=== PATIENT | female | born 1960 | race Caucasian/White ===

== ENCOUNTER → 2016-06-02 | Outpatient (CLI) | payer OTHER ==
--- NOTE | 2016-06-02 17:57 | MR ---
EXAMINATION TYPE: MR lumbar spine wo con DATE OF EXAM: 06/02/2016 5:48 PM COMPARISON: NONE HISTORY: LBP, panda leg numbness for several years, no hx surgery/trauma TECHNIQUE: Multiplanar, multisequence images of the lumbar spine were acquired. L1-L2: Vertebral body hemangioma of L1. No canal stenosis or disc herniation. No foraminal encroachme nt. L2-L3: Normal disc appearance without desiccation. No herniation, protrusion or disc bulging. No ca nal stenosis is present. Foramina are patent bilaterally. L3-L4: Facet arthropathy and hypertrophic changes and ligamentum flavum. There is circumferential dis c bulging and mild effacement of thecal sac and borderline canal stenosis. There is a more focal righ t lateral disc protrusion with mild to moderate right foraminal encroachment. L4-L5: Severe degenerative disc disease with facet arthropathy and uncovertebral joint hypertrophy. B orderline canal stenosis and far left lateral disc broad-based protrusion resulting in mild to modera te left foraminal encroachment. L5-S1: Facet arthropathy with no canal stenosis or foraminal encroachment. No disc herniation. Lumbar segments are intact. No paraspinal masses are identified. Conus medullaris has a normal appe arance. Cholelithiasis noted. IMPRESSION: 1. Severe degenerative disc disease L4-L5 with diffuse disc bulging resulting in borderline canal alvin nosis. A more focal far left lateral component results in mild left foraminal encroachment. 2. Borderline canal stenosis L3-L4 secondary to disc bulging and hypertrophic change of the facets an d ligamentum flavum. More focal right lateral disc bulge or protrusion results in mild to moderate r ight foraminal encroachment. 3. Tiny gallstones noted.
== END | disposition home or self-care (01) ==
LOC: RADMRIMAIN 17:06
PROVIDERS: ATTEND Psychiatry & Neurology Pain Medicine
DX: M48.06 Spinal stenosis, lumbar region (principal); M51.26 Other intervertebral disc displacement, lumbar region; M51.36 Other intervertebral disc degeneration, lumbar region
CPT/HCPCS: 72148

== ENCOUNTER → 2016-06-16 | Outpatient (CLI) | payer OTHER ==
--- NOTE | 2016-06-17 08:57 | CT ---
EXAMINATION TYPE: CT cervical spine wo con DATE OF EXAM: 06/16/2016 8:00 PM COMPARISON: MR cervical spine 23 February 2016 HISTORY: Pt states of neck pain after sx. CT DLP: 552.3 mGycm Automated exposure control for dose reduction was used. TECHNIQUE: CT scan of the cervical spine is obtained without contrast, axial images are obtained, sagittal and c oronal reformatted images are also reviewed. FINDINGS: Lung apices show emphysematous changes. Similar findings to MRI. Patient shows fusion at C4-5, there is spondylosis at C3-4, C5-6 and C6-7 wi th associated loss of disc height. Reversal the normal cervical lordosis is present. Cervical vertebr al bodies are intact. Some foraminal encroachment present at C5-6 right greater than left, C3-4, C6-7 right-sided. Cervical vertebral bodies show preserved height. Posterior extension of endplate disc c omplex is at C5-6 and C6-7 show anterior mass effect on the thecal sac. Suspect a spinal curvature is present. IMPRESSION: There is no acute fracture or dislocation evident in the cervical spine. See dictated report cervical MRI. Multilevel foraminal encroachment, degenerative disc disease, postop change. Additional finding s above.
== END | disposition home or self-care (01) ==
LOC: RADCTMAIN 19:28
PROVIDERS: ATTEND Neurological Surgery
DX: M50.30 Other cervical disc degeneration, unspecified cervical region (principal); Z98.890 Other specified postprocedural states
CPT/HCPCS: 72125

== ENCOUNTER → 2016-12-28 | Outpatient (CLI) | payer OTHER ==
--- NOTE | 2016-12-28 19:00 | CT ---
EXAMINATION TYPE: CT cervical spine wo con DATE OF EXAM: 12/28/2016 COMPARISON: 06/16/2016 HISTORY: Follow up cervical fusion per patient CT DLP: 504.6 mGycm Automated exposure control for dose reduction was used. TECHNIQUE: CT scan of the cervical spine is obtained without contrast, axial images are obtained, sa gittal and coronal reformatted images are also reviewed. FINDINGS: There is a plate with screws fusing anteriorly C5-C6 and C7. There is disc prosthesis. Ther e is an old fusion of C4-5. There is multilevel hypertrophic facet arthropathy. There is straightenin g of the cervical spine and a slight kyphotic curvature at the C3-4 level. The skull base is intact. I see no fracture. There is no subluxation. There is some posterior endplate spur formation at C5-6 C 6-7 with slight encroachment on the spinal canal. The canal is developmentally large and I see no sig nificant spinal stenosis. IMPRESSION: Multilevel fusion surgery is new compared to old exam. No complicating process seen. No s ign of instability. There is stable kyphotic curvature at the C3-4-5 level.
== END | disposition home or self-care (01) ==
LOC: RADCTMAIN 18:02
PROVIDERS: ATTEND Neurological Surgery
DX: M40.292 Other kyphosis, cervical region (principal); Z98.1 Arthrodesis status
CPT/HCPCS: 72125

== ENCOUNTER → 2017-05-04 | Outpatient (CLI) | payer OTHER ==
--- NOTE | 2017-05-04 19:43 | CT ---
EXAMINATION TYPE: CT cervical spine w con DATE OF EXAM: 05/04/2017 COMPARISON: 12/28/2016 HISTORY: Neck stiffness and decreased range of motion. Surgery 09/16/16. CT DLP: 627.30 mGycm Automated exposure control for dose reduction was used. CONTRAST: Performed with IV Contrast, patient injected with 100 mL of Omnipaque 300. FINDINGS: There is anterior fusion surgery with plate and screws from C5 to C7. There is apparent old C4-5 ante rior fusion. There is degenerative spurring of the endplates at C5-6 C6-7. There is straightening of the vertebra. The skull base is intact. The contrast images show no pathologic enhancement. There is some narrowing of the spinal canal at C5-6 C6-7 due to the posterior spurring. Canal measures 8 mm at C6-7. I see no pathologic enhancement. IMPRESSION: PREVIOUS SURGERY. SPINE APPEARS STABLE COMPARED TO LAST EXAM. MILD RELATIVE SPINAL STENOSIS AT C5-6 A ND C6-7. NO FRACTURE SEEN.
== END | disposition home or self-care (01) ==
LOC: RADCTMAIN 19:07
PROVIDERS: ATTEND Neurological Surgery
DX: M48.02 Spinal stenosis, cervical region (principal); Z98.890 Other specified postprocedural states
CPT/HCPCS: 72126; Q9967

== ENCOUNTER → 2017-06-23 | Outpatient (CLI) | payer OTHER ==
--- NOTE | 2017-06-26 09:03 | MM ---
Reason for exam: screening (asymptomatic). Last mammogram was performed 1 year and 3 months ago. History: Patient is postmenopausal. Family history of breast cancer in sister at age 61, breast cancer in aunt at age 70, and breast cancer in paternal cousin. Benign MG stereo VAD BX LT of the left breast, July 22, 2014. Took hormonal contraceptives for 7 years beginning at age 17. Physical Findings: A clinical breast exam by your physician is recommended on an annual basis and results should be correlated with mammographic findings. MG 3D Screening Mammo W/Cad Bilateral CC and MLO view(s) were taken. Prior study comparison: March 18, 2016, bilateral MG 3d diag mammo w/cad [facility]. January 22, 2015, bilateral MG diagnostic mammo w CAD [facility]. There are scattered fibroglandular densities. There is a bilobed central inner low density middle depth mass similar to multiple prior exams. No suspicious abnormality. Left biopsy marker noted. ASSESSMENT: Benign, BI-RAD 2 RECOMMENDATION: Routine screening mammogram of both breasts in 1 year. Manage on a clinical basis with regard to left whole breast soreness. Diagnostic exam should be performed for focal pain.
== END | disposition home or self-care (01) ==
LOC: RADMAMWWP 16:46
PROVIDERS: ATTEND Family Medicine
DX: Z12.31 Encounter for screening mammogram for malignant neoplasm of breast (principal)
CPT/HCPCS: 77063; 77067

== ENCOUNTER → 2017-08-24 | Outpatient (CLI) | payer OTHER ==
--- NOTE | 2017-08-25 08:20 | MR ---
EXAMINATION TYPE: MR cervical spine wo/w con DATE OF EXAM: 08/24/2017 7:02 PM COMPARISON: 02/23/2016 HISTORY: Neck pain, headaches, BUE radic, surgery 2017 CONTRAST: The patient was injected with 10 mL intravenous Gadavist gadolinium contrast. Multiplanar MultiSpin echo imaging of the cervical spine was performed. C2-C3: No evidence for degenerative disc disease. No disc bulge/herniation or protrusion. No Canal stenosis. Foramina are patent bilaterally. C3-C4: Mild degenerative disc disease with disc desiccation noted. Posterior disc bulge with mild eff acement ventral thecal sac. Mild distortion of the ventral portion of the cervical spinal cord withou t contact. C4-C5: Changes of fusion are noted at this level. No evidence for recurrent or residual disease. Spin al canal is capacious. C5-C6: Changes of anterior cervical discectomy and fusion. Mild posterior hypertrophic change. Spinal canal is capacious. No evidence for recurrent or residual disc herniation. No pathologic enhancement . C6-C7:Changes of anterior cervical discectomy and fusion. Mild posterior hypertrophic change. Spinal canal is capacious. No evidence for recurrent or residual disc herniation. Enhancing granulation tiss ue identified. No pathologic enhancement. C7-T1: No evidence for degenerative disc disease. No disc bulge/herniation or protrusion. No Canal stenosis. Foramina are patent bilaterally. No cervical spine fracture. Straightening of the cervical spinal alignment is again noted at C3-4 and C4-5. Cervical spinal cord is of normal signal. Craniovertebral junction relationships are within n ormal limits. No pathologic enhancement. IMPRESSION: 1. Postoperative changes of ACDF and fusion as discussed. 2. Straightening of the cervical spinal cord as noted. 3. Disc bulging and disc desiccation at C3-4. 2.
== END | disposition home or self-care (01) ==
LOC: RADMRIMAIN 18:10
PROVIDERS: ATTEND Anesthesiology
DX: M50.11 Cervical disc disorder with radiculopathy, high cervical region (principal); Z98.1 Arthrodesis status
CPT/HCPCS: 72156; A9581

== ENCOUNTER → 2018-06-29 | Outpatient (CLI) | payer OTHER ==
--- NOTE | 2018-07-02 11:40 | MM ---
Reason for exam: clinical finding. Last mammogram was performed 1 year ago. History: Patient is postmenopausal. Family history of breast cancer in sister at age 61, breast cancer in aunt at age 70, and breast cancer in paternal cousin. Benign MG stereo VAD BX LT of the left breast, July 22, 2014. Took hormonal contraceptives for 7 years beginning at age 17. Indicated problem(s): pain in the left breast. Physical Findings: Nurse did not find any significant physical abnormalities on exam. MG 3D Diag Mammo W/Cad [facility] Bilateral CC and MLO view(s) were taken. Prior study comparison: June 23, 2017, bilateral MG 3d screening mammo w/cad. March 18, 2016, bilateral MG 3d diag mammo w/cad [facility]. There are scattered fibroglandular densities. Finding: There is a 5 mm oval mass in the subareolar position of the left breast. Previous mammotome biopsy in the left breast. There is a chronic nodularity in the left breast. These results were verbally communicated with the patient and result sheet given to the patient on 06/29/18. ASSESSMENT: Incomplete: need additional imaging evaluation, BI-RAD 0 RECOMMENDATION: Ultrasound of the left breast.
--- NOTE | 2018-07-02 11:41 | USB ---
Reason for exam: additional evaluation requested from abnormal screening. History: Patient is postmenopausal. Family history of breast cancer in sister at age 61, breast cancer in aunt at age 70, and breast cancer in paternal cousin. Benign MG stereo VAD BX LT of the left breast, July 22, 2014. Took hormonal contraceptives for 7 years beginning at age 17. US Breast Limited LT Left limited breast ultrasound including focal area of concern, retroareolar and axilla demonstrates a 0.6 x 0.5 x 0.3cm oval, lobular, hypoechoic lesion at 12 o'clock. These results were verbally communicated with the patient and result sheet given to the patient on 06/29/18. ASSESSMENT: Suspicious, BI-RAD 4 RECOMMENDATION: Ultrasound core biopsy of the left breast. Called Dr. Palomo with mammographic findings and has scheduled an appointment for the patient for 08/01/18 at 1:[address] Mckeon. Biopsy scheduled for 07/11/18 at 12:20. PRELIMINARY REPORT CALLED AND FAXED TO DR. MCKEON ON 07/02/18.
== END ==
LOC: RADMAMWWP 15:37
PROVIDERS: ATTEND Family Medicine
DX: R92.8 Other abnormal and inconclusive findings on diagnostic imaging of breast (principal); N64.4 Mastodynia
CPT/HCPCS: 77066; 76642; G0279; 77062

== ENCOUNTER → 2018-07-11 | Day surgery (SDC) | payer OTHER ==
[2018-07-11 12:47] VITALS: RESP 16; BMI 36.5
[2018-07-11 13:32] VITALS: BP 146/87; PULSE 73; TEMP 97.9
--- NOTE | 2018-07-11 13:39 | USB ---
EXAMINATION TYPE: US breast aspiration single LT, MG diagnostic mammo LT wo CAD DATE OF EXAM: 07/11/2018 COMPARISON: 06/29/2018 mammogram and ultrasound CLINICAL HISTORY: R92.8 Abn mammo. PROCEDURE: Preprocedural imaging of the 5 mm mass at the 12:00 position within the left breast demonstrates some increased through transmission and a well- defined posterior wall. Therefore the decision was made to attempt fine-needle aspiration with conversion to biopsy if needed. Informed consent was obtained prior to the procedure from the patient. Preprocedural timeout was performed. The patient was sterilely draped and prepped. 10 cc of lidocaine 1% buffered with bicarbonate was utilized to anesthetize the skin surface and subcutaneous tissues leading to the 5 mm mass within the left breast at the 12:00 position. An 18-gauge spinal needle was then utilized to aspirate less than 1 cc of serosanguineous fluid from the cyst, probable inflammatory cyst. The cyst collapsed upon aspiration. Biopsy marker was left at the site of aspiration. On postprocedural mammogram a ribbon-shaped biopsy marker is seen at the site of the previously described left breast mass, corresponding to the mammographic abnormality. IMPRESSION: Successful left breast cyst aspiration of a 5 mm cyst at the 12:00 position, likely an inflammatory cyst as scant serosanguineous fluid was obtained. This does correspond to the mammographic abnormality seen on the prior diagnostic mammogram of 06/29/2018. Pathology Results: Benign LEFT BREAST, TWELVE O'CLOCK, ASPIRATE: Aggregates of bland apocrine cells with degenerated cellular material and foamy histiocytes consistent with benign apocrine cyst. Recommendation Follow up mammogram of the left breast in 6 months. FRANTZ
== END | disposition home or self-care (01) ==
LOC: RADUSWWP 12:23
PROVIDERS: ATTEND Surgery
DX: N60.02 Solitary cyst of left breast (principal); Z88.2 Allergy status to sulfonamides; Z88.8 Allergy status to other drugs, medicaments and biological substances; Z91.048 Other nonmedicinal substance allergy status
CPT/HCPCS: 88108; 77065; 19000; 76942; A4648; J2001

== ENCOUNTER → 2019-01-04 | Outpatient (CLI) | payer OTHER ==
--- NOTE | 2019-01-04 08:43 | CT ---
EXAMINATION TYPE: CT brain w con DATE OF EXAM: 01/04/2019 COMPARISON: None HISTORY: 58-year-old female with dysarthria, confusion, headache and dizziness, Altered mental status CT DLP: 961.0 mGycm Automated exposure control for dose reduction was used. CONTRAST: CT scan of the head is performed with IV Contrast, patient injected with 100 mL of Isovue 300. FINDINGS: There is no abnormal enhancing mass or midline shift identified. No extra-axial fluid collection. Mi ld ventricular prominence likely secondary to mild central cerebral volume loss. The cerebral sulci a nd basal cisterns are within normal limits in size. Overall pagan-white matter differentiation appear s maintained. The globes are intact and the visualized sinuses are clear. Trace mucosal thickening ethmoid air cell s. IMPRESSION: No enhancing intracranial lesions. No midline shift or extra-axial fluid collection. Mild central cer ebral atrophy.
== END | disposition home or self-care (01) ==
LOC: RADCTMAIN 07:24
PROVIDERS: ATTEND Family Medicine
DX: G31.9 Degenerative disease of nervous system, unspecified (principal); R47.1 Dysarthria and anarthria
CPT/HCPCS: 70460

== ENCOUNTER → 2019-01-18 | Outpatient (CLI) | payer OTHER ==
--- NOTE | 2019-01-18 14:40 | MM ---
Reason for exam: follow-up at short interval from prior study. Last mammogram was performed 6 months ago. History: Patient is postmenopausal. Family history of breast cancer in sister at age 61, breast cancer in aunt at age 70, and breast cancer in paternal cousin. Benign US breast aspiration single LT of the left breast, July 11, 2018. Benign MG stereo VAD BX LT of the left breast, July 22, 2014. Took hormonal contraceptives for 7 years beginning at age 17. Physical Findings: Nurse did not find any significant physical abnormalities on exam. MG 3D Diag Mammo W/Cad LT CC and MLO view(s) were taken of the left breast. Prior study comparison: July 11, 2018, left breast MG diagnostic mammo LT wo CAD. June 29, 2018, bilateral MG 3d diag mammo w/cad [facility]. There are scattered fibroglandular densities. Previous mammotome biopsy in the left breast. There is chronic nodularity in the left breast. No significant new findings when compared with previous films. These results were verbally communicated with the patient and result sheet given to the patient on 01/18/19. ASSESSMENT: Benign, BI-RAD 2 RECOMMENDATION: Routine screening mammogram of both breasts in 6 months. Back on schedule.
== END | disposition home or self-care (01) ==
LOC: RADMAMWWP 13:46
PROVIDERS: ATTEND Family Medicine
DX: R92.8 Other abnormal and inconclusive findings on diagnostic imaging of breast (principal)
CPT/HCPCS: 77065; G0279; 77061

== ENCOUNTER → 2019-01-28 | Outpatient (CLI) | payer OTHER ==
--- NOTE | 2019-01-31 12:40 | ECHOF ---
Referral Reason:R01.1 heart murmur MEASUREMENTS -------- HEIGHT: 175.3 cm WEIGHT: 108.9 kg BP: RVIDd: 2.4 cm (< 3.3) IVSd: 1.2 cm (0.6 - 1.1) LVIDd: 4.1 cm (3.9 - 5.3) LVPWd: 1.3 cm (0.6 - 1.1) IVSs: 1.5 cm LVIDs: 2.6 cm LVPWs: 1.5 cm LAESV Index (A-L): 15.37 ml/m Ao Diam: 2.7 cm (2.0 - 3.7) AV Cusp: 1.8 cm (1.5 - 2.6) LA Diam: 3.0 cm (2.7 - 3.8) MV EXCURSION: 11.106 mm (> 18.000) MV EF SLOPE: 53 mm/s (70 - 150) EPSS: 0.7 cm MV E Andrew: 0.72 m/s MV DecT: 213 ms MV A Andrew: 0.84 m/s MV E/A Ratio: 0.86 RAP: 5.00 mmHg RVSP: 20.18 mmHg FINDINGS -------- Sinus rhythm. This was a technically good study. The left ventricular size is normal. There is mild concentric left ventricular hypertrophy. Overa ll left ventricular systolic function is normal with, an EF between 55 - 60 %. The diastolic fillin g pattern is normal for the age of the patient 9.96. The right ventricle is normal in size. The left atrial size is normal. Normal LA size by volume 22+/-6 ml/m2. The right atrial size is normal. The aortic valve is trileaflet and appears structurally normal. The mitral valve is normal. Mild mitral regurgitation is present. The tricuspid valve appears structurally normal. Mild tricuspid regurgitation present. Right vent ricular systolic pressure is normal at < 35 mmHg. There is no pulmonic regurgitation present. The aortic root size is normal. Normal inferior vena cava with normal inspiratory collapse consistent with estimated right atrial pre ssure of 5 mmHg. All pulmonary veins appear normal. The flow patterns, measured by Doppler, appear normal. There is no pericardial effusion. CONCLUSIONS -------- 1. Sinus rhythm. 2. This was a technically good study. 3. The left ventricular size is normal. 4. There is mild concentric left ventricular hypertrophy. 5. Overall left ventricular systolic function is normal with, an EF between 55 - 60 %. 6. The diastolic filling pattern is normal for the age of the patient 9.96 7. The right ventricle is normal in size. 8. The left atrial size is normal. 9. Normal LA size by volume 22+/-6 ml/m2. 10. The right atrial size is normal. 11. The aortic valve is trileaflet and appears structurally normal. 12. The mitral valve is normal. 13. Mild mitral regurgitation is present. 14. The tricuspid valve appears structurally normal. 15. Mild tricuspid regurgitation present. 16. Right ventricular systolic pressure is normal at < 35 mmHg. 17. There is no pulmonic regurgitation present. 18. The aortic root size is normal. 19. Normal inferior vena cava with normal inspiratory collapse consistent with estimated right atrial pressure of 5 mmHg. 20. All pulmonary veins appear normal. 21. The flow patterns, measured by Doppler, appear normal. 22. There is no pericardial effusion. WOOD SHINGLE ROOFER: Serena Maddox RDCS
== END | disposition home or self-care (01) ==
LOC: RADECHMAIN 16:37
PROVIDERS: ATTEND Family Medicine
DX: I08.1 Rheumatic disorders of both mitral and tricuspid valves (principal)
CPT/HCPCS: 93306

== ENCOUNTER → 2019-03-15 | Outpatient (CLI) | payer OTHER ==
--- NOTE | 2019-03-17 11:35 | MR ---
EXAMINATION TYPE: MR knee LT wo con DATE OF EXAM: 03/15/2019 COMPARISON: None HISTORY: Pain in left knee / Bursitis TECHNIQUE: Multiplanar, multisequence imaging of the left knee is performed without IV contrast. FINDINGS: The anterior cruciate and posterior cruciate ligaments are intact. Medial collateral and lateral collateral ligaments are intact. There is mild narrowing the joint spaces with no evidence of erosive change. Articular cartilage is f airly well preserved with no evidence of free fragments. No diagnostic evidence of chondromalacia. Lateral meniscus demonstrates intrasubstance signal along the periphery of the posterior horn suspici ous for subtle tear. Medial meniscus has a normal appearance. No active marrow edema or contusion. No sizable popliteal fossa cyst. Patellar and quadriceps tendons are intact. No sizable amount of fluid within the suprapatellar bursa . However, there is soft tissue edema and fluid within the prepatellar bursa extending a craniocaudal length of 3.4 cm and a transverse dimension of 4.3 cm. Correlate for prepatellar bursitis. IMPRESSION: 1. Correlate for prepatellar bursitis. 2. Osteoarthritis. 3. Findings suspicious for a subtle tear posterior horn lateral meniscus
== END | disposition home or self-care (01) ==
LOC: RADMRIMAIN 19:12
PROVIDERS: ATTEND Orthopaedic Surgery
DX: M17.12 Unilateral primary osteoarthritis, left knee (principal); M70.42 Prepatellar bursitis, left knee; I10 Essential (primary) hypertension; E03.9 Hypothyroidism, unspecified; Z68.36 Body mass index [BMI] 36.0-36.9, adult; Z87.891 Personal history of nicotine dependence

== ENCOUNTER 2019-04-03 16:12 | Emergency (ER) | payer OTHER ==
[2019-04-03 16:39] VITALS: TEMP 98.5
[2019-04-03] MEDS ORDERED: KETOROLAC 30 MG/ML 1 ML VIAL IVP STA (17:41)
[2019-04-03] MEDS ORDERED: ONDANSETRON 4 MG/2 ML VIAL IVP STA (17:41)
[2019-04-03] MEDS ORDERED: SODIUM CHLORIDE 0.9% 1,000 ML IV STA (17:41)
[2019-04-03 18:09] LABS: HCT 40.2 % (34.0-46.0); HGB 13.6 gm/dL (11.4-16.0); MCH 29.8 pg (25.0-35.0); MCHC 33.8 g/dL (31.0-37.0); MCV 88.3 fL (80.0-100.0); Mean Platelet Volume 7.2; Platelet Count 409 k/uL (150-450); RBC 4.55 m/uL (3.80-5.40); RDW 12.2 % (11.5-15.5); WBC 9.7 k/uL (3.8-10.6)
--- NOTE | 2019-04-03 18:18 | XR ---
EXAMINATION TYPE: XR chest 2V DATE OF EXAM: 04/03/2019 COMPARISON: NONE HISTORY: Headache and lightheadedness. TECHNIQUE: Frontal and lateral views of the chest are obtained. FINDINGS: There is no focal air space opacity, pleural effusion, or pneumothorax seen. The cardiac silhouette size is mildly enlarged. Anterior fusion plate lower cervical spine is noted. IMPRESSION: Mild cardiomegaly without acute pulmonary process.
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
[2019-04-03 18:24] LABS: ALT 35 U/L (9-52); AST 22 U/L (14-36); African American GFR (CKD) >90 (>60 ml/min/1.73 sqM); Albumin 4.5 g/dL (3.5-5.0); Alkaline Phosphatase 122 U/L (38-126); Anion Gap 10 mmol/L; Appearance,Urine Clear (Clear); Bilirubin,Urine Negative (Negative); Blood Urea Nitrogen 18 mg/dL (7-17); Blood,Urine Negative (Negative); Carbon Dioxide 21 mmol/L (22-30); Chloride 107 mmol/L (98-107); Color,Urine Light Yellow; Glucose 152 mg/dL (74-99); Glucose,Urine (UA) Negative (Negative); Ketones,Urine Negative (Negative); Leukocyte Esterase,Urine Trace (Negative); Nitrite,Urine Negative (Negative); Non-African American GFR(CKD) >90 (>60 ml/min/1.73 sqM); Potassium 4.3 mmol/L (3.5-5.1); Protein,Urine Negative (Negative); Sodium 138 mmol/L (137-145); Specific Gravity,Urine 1.005 (1.001-1.035); Total Bilirubin 0.5 mg/dL (0.2-1.3); Total Protein 7.1 g/dL (6.3-8.2); Urobilinogen,Urine <2.0 mg/dL (<2.0)
[2019-04-03 18:58] LABS: Band Neutrophils % 1 %; Eosinophils # (M) 0.19 k/uL (0-0.7); Lymphocytes # (M) 2.72 k/uL (1.0-4.8); Monocytes # (M) 0.58 k/uL (0-1.0); Neutrophils % (M) 62 %; Nucleated Red Blood Cells 0 /100 WBC (0-0); Total Cells Counted 100
[2019-04-03 19:15] VITALS: BP 120/80; PULSE 95; RESP 18
== END 2019-04-03 19:14 | disposition home or self-care (01) ==
LOC: EC 16:12
DX: R51 Headache (principal); R53.1 Weakness; R42 Dizziness and giddiness; R10.9 Unspecified abdominal pain; R11.0 Nausea; M19.90 Unspecified osteoarthritis, unspecified site; E07.9 Disorder of thyroid, unspecified; Z79.899 Other long term (current) drug therapy; Z79.890 Hormone replacement therapy; Z88.1 Allergy status to other antibiotic agents; Z88.2 Allergy status to sulfonamides; Z88.8 Allergy status to other drugs, medicaments and biological substances; Z91.048 Other nonmedicinal substance allergy status
CPT/HCPCS: 36415; 93005; 80053; 84484; 85025; 81001; 71046; 99284; 96374; 96375; 96361; J2405; J1885

== ENCOUNTER → 2019-07-15 | Outpatient (CLI) | payer OTHER | END | disposition home or self-care (01) | CPT/HCPCS: 36415; 82565 ==

== ENCOUNTER → 2019-07-15 | Outpatient (CLI) | payer OTHER ==
--- NOTE | 2019-07-15 09:55 | MM ---
Reason for exam: screening (asymptomatic). Last mammogram was performed 6 months ago. History: Patient is postmenopausal. Family history of breast cancer in sister at age 61, breast cancer in aunt at age 70, and breast cancer in paternal cousin. Benign US breast aspiration single LT of the left breast, July 11, 2018. Benign MG stereo VAD BX LT of the left breast, July 22, 2014. Took hormonal contraceptives for 7 years beginning at age 17. Physical Findings: A clinical breast exam by your physician is recommended on an annual basis and results should be correlated with mammographic findings. MG 3D Screening Mammo W/Cad Bilateral CC and MLO view(s) were taken. Prior study comparison: January 18, 2019, left breast MG 3d diag mammo w/cad LT. July 11, 2018, left breast MG diagnostic mammo LT wo CAD. June 29, 2018, bilateral MG 3d diag mammo w/cad [facility]. June 23, 2017, bilateral MG 3d screening mammo w/cad. March 18, 2016, bilateral MG 3d diag mammo w/cad [facility]. There are scattered fibroglandular densities. No significant changes when compared with prior studies. ASSESSMENT: Benign, BI-RAD 2 RECOMMENDATION: Routine screening mammogram of both breasts in 1 year.
== END | disposition home or self-care (01) ==
LOC: RADMAMWWP 06:58
PROVIDERS: ATTEND Surgery
DX: Z12.31 Encounter for screening mammogram for malignant neoplasm of breast (principal)
CPT/HCPCS: 77063; 77067

== ENCOUNTER → 2021-07-22 | Outpatient (CLI) | payer OTHER ==
--- NOTE | 2021-07-22 15:10 | MM ---
Reason for exam: additional evaluation requested from prior study. Last mammogram was performed 2 years ago. History: Patient is postmenopausal. Family history of breast cancer in sister at age 61, breast cancer in aunt at age 70, and breast cancer in paternal cousin. Benign US breast aspiration single LT of the left breast, July 11, 2018. Benign MG stereo VAD BX LT of the left breast, July 22, 2014. Took hormonal contraceptives for 7 years beginning at age 17. Physical Findings: A clinical breast exam by your physician is recommended on an annual basis and results should be correlated with mammographic findings. MG 3D Diag Mammo W/Cad [facility] Bilateral CC and MLO view(s) were taken. Prior study comparison: July 15, 2019, bilateral MG 3d screening mammo w/cad. January 18, 2019, left breast MG 3d diag mammo w/cad LT. Previous mammotome biopsy in the left breast. There is chronic nodularity in the left breast. No significant changes when compared with prior studies. ASSESSMENT: Incomplete: need additional imaging evaluation, BI-RAD 0 RECOMMENDATION: Ultrasound of the left breast.
--- NOTE | 2021-07-22 15:11 | USB ---
Reason for exam: additional evaluation requested from abnormal screening. History: Patient is postmenopausal. Family history of breast cancer in sister at age 61, breast cancer in aunt at age 70, and breast cancer in paternal cousin. Benign US breast aspiration single LT of the left breast, July 11, 2018. Benign MG stereo VAD BX LT of the left breast, July 22, 2014. Took hormonal contraceptives for 7 years beginning at age 17. Physical Findings: A clinical breast exam by your physician is recommended on an annual basis and results should be correlated with mammographic findings. US Breast Limited LT Left limited breast ultrasound including focal area of concern, retroareolar and axilla demonstrates no cystic or solid lesion seen. ASSESSMENT: Negative, BI-RAD 1 RECOMMENDATION: Routine screening mammogram of both breasts in 1 year. Manage on a clinical basis with regard to pain.
== END | disposition home or self-care (01) ==
LOC: RADMAMWWP 14:18
PROVIDERS: ATTEND Family Medicine
DX: N64.4 Mastodynia (principal)
CPT/HCPCS: 77066; 76642; G0279; 77062

== ENCOUNTER → 2021-09-10 | Outpatient (CLI) | payer OTHER ==
--- NOTE | 2021-09-10 09:05 | US ---
EXAMINATION TYPE: US abdomen complete DATE OF EXAM: 09/10/2021 COMPARISON: NONE CLINICAL HISTORY: R10.11 RIGHT UPPER QUADRANT PAIN. EXAM MEASUREMENTS: Liver Length: 15.2 cm Gallbladder Wall: 0.2 cm CBD: 0.3 cm Spleen: 11.4 cm Right Kidney: 10.6 x 3.8 x 4.6 cm Left Kidney: 10.7 x 4.6 x 5.0 cm Pancreas: Tail obscured by overlying bowel gas Liver: wnl Gallbladder: cholelithiasis Evidence for sonographic Napoles's sign: no CBD: wnl Spleen: wnl Right Kidney: No hydronephrosis or masses seen Left Kidney: No hydronephrosis or masses seen Upper IVC: wnl Abd Aorta: wnl as seen bifurcation obscured The liver is homogenous. The intrahepatic portion of the IVC and proximal abdominal aorta are within normal limits. Common bile duct is unremarkable. The visualized portions of the pancreas are homog enous. The spleen is unremarkable. Kidneys are symmetric and free of hydronephrosis. No renal lesi ons are seen. IMPRESSION: Uncomplicated cholelithiasis.
== END | disposition home or self-care (01) ==
LOC: RADUSWWP 08:20
PROVIDERS: ATTEND Family Medicine
DX: K80.20 Calculus of gallbladder without cholecystitis without obstruction (principal)
CPT/HCPCS: 76700

== ENCOUNTER → 2022-09-16 | Outpatient (CLI) | payer OTHER ==
--- NOTE | 2022-09-19 18:51 | MM ---
Reason for Exam: Screening (asymptomatic). Last mammogram was performed 1 year(s) and 2 month(s) ago. Patient History: Menarche at age 17. First Full-Term at age 23. Postmenopausal. Hormonal Contraceptives for 7 years from age 17 until age 24. 07/11/2018, Benign Cyst Aspiration on the left side. 07/22/2014, Benign Core Biopsy on the left side. Paternal cousin had breast cancer at or over age 50. Paternal aunt had breast cancer, age 70. Sister had breast cancer, age 61. Risk Values: Chantal 5 year model risk: 3.0%. NCI Lifetime model risk: 14.5%. Prior Study Comparison: 01/18/2019 Left Diagnostic Mammogram, [facility]. 07/15/2019 Bilateral Screening Mammogram, [facility]. 07/22/2021 Bilateral Diagnostic Mammogram, [facility]. Tissue Density: There are scattered fibroglandular densities. Findings: Analyzed By CAD. 2 microclips within the left breast from prior biopsies. Chronic nodularity lateral aspect of the left breast. There is no suspicious group of microcalcifications or new suspicious mass in either breast. Overall Assessment: Benign, BI-RAD 2 Management: Screening Mammogram of both breasts in 1 year. See note below regarding patient's increased five-year Chantal score. Patient should continue monthly self-breast exams. A clinical breast exam by your physician is recommended on an annual basis. This exam should not preclude additional follow-up of suspicious palpable abnormalities. Note on Chantal scores and lifetime risk: 1. A Chantal score greater than 3% is considered moderate risk. If this is the case, consider specialist referral to assess eligibility for a risk reducing agent. 2. If overall lifetime risk for the development of breast cancer is 20% or higher, the patient may qualify for future screening with alternating mammogram and breast MRI. Electronically signed and approved by: Joan Gutierrez M.D. Radiologist
== END | disposition home or self-care (01) ==
LOC: RADMAMWWP 13:17
PROVIDERS: ATTEND Family Medicine
DX: Z12.31 Encounter for screening mammogram for malignant neoplasm of breast (principal); Z78.0 Asymptomatic menopausal state; Z80.3 Family history of malignant neoplasm of breast
CPT/HCPCS: 77063; 77067

== ENCOUNTER → 2023-09-27 | Outpatient (CLI) | payer OTHER ==
--- NOTE | 2023-09-27 23:48 | MM ---
Reason for Exam: Screening (asymptomatic). Last screening mammogram was performed 12 month(s) ago. Patient History: Menarche at age 17. First Full-Term at age 23. Postmenopausal. Patient has history of breast feeding. Hormonal Contraceptives for 7 years from age 17 until age 24. 07/11/2018, Benign Cyst Aspiration on the left side. 07/22/2014, Benign Core Biopsy on the left side. Paternal cousin had breast cancer at or over age 50. Paternal aunt had breast cancer, age 70. Niece had breast cancer under age 50. Sister had breast cancer, age 61. Sister had breast cancer at or over age 50. Risk Values: Chantal 5 year model risk: 6.5%. NCI Lifetime model risk: 27.6%. Prior Study Comparison: 03/18/2016 Bilateral Diagnostic Mammogram, [facility]. 06/23/2017 Bilateral Screening Mammogram, [facility]. 06/29/2018 Bilateral Diagnostic Mammogram, [facility]. 07/11/2018 Left Diagnostic Mammogram, [facility]. 01/18/2019 Left Diagnostic Mammogram, [facility]. 07/15/2019 Bilateral Screening Mammogram, [facility]. 07/22/2021 Bilateral Diagnostic Mammogram, [facility]. 09/16/2022 Bilateral MG 3D screening mammo w/cad, [facility]. Tissue Density: There are scattered areas of fibroglandular density. Findings: Analyzed By CAD. The pattern is symmetrical. Chronic nodularity appears stable in the upper outer left breast. Benign core markers are within the left breast. No suspicious groups of microcalcifications, spiculated or lobular masses, architectural distortion or other secondary signs of malignancy are mammographically apparent. Overall Assessment: Benign, BI-RAD 2 Management: Screening Mammogram of both breasts in 1 year. A negative mammogram report should not preclude additional follow up of suspicious palpable abnormalities. Patient should continue monthly self breast exam. A clinical breast exam by your physician is recommended on an annual basis and results should be correlated with mammographic findings. Note on Chantal scores and lifetime risk: 1. A Chantal score greater than 3% is considered moderate risk. If this is the case, consider specialist referral to assess eligibility for a risk reducing agent. 2. If overall lifetime risk for the development of breast cancer is 20% or higher, the patient may qualify for future screening with alternating mammogram and breast MRI. Electronically signed and approved by: Joshua Mcadams D.O. Radiologis
== END | disposition home or self-care (01) ==
LOC: RADMAMWWP 07:42
PROVIDERS: ATTEND Family Medicine
DX: Z12.31 Encounter for screening mammogram for malignant neoplasm of breast (principal); Z80.3 Family history of malignant neoplasm of breast; Z78.0 Asymptomatic menopausal state
CPT/HCPCS: 77063; 77067

== ENCOUNTER 2024-06-27 15:34 | Emergency (ER) | payer OTHER ==
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
[2024-06-27] MEDS: KETOROLAC 15 MG/ML 1 ML VIAL IVP STA (17:08)
[2024-06-27 17:09] LABS: HCT 39.5 % (34.0-46.0); HGB 12.1 gm/dL (11.4-16.0); MCH 26.3 pg (25.0-35.0); MCHC 30.6 g/dL (31.0-37.0); MCV 85.9 fL (80.0-100.0); Platelet Count 399 k/uL (150-450); RBC 4.59 m/uL (3.80-5.40); RDW 13.8 % (11.5-15.5); WBC 8.9 k/uL (3.8-10.6)
[2024-06-27] MEDS: SODIUM CHLORIDE 0.9% 1,000 ML IV STA (17:11)
[2024-06-27 17:21] LABS: ALT 18 U/L (4-34); AST 21 U/L (14-36); African American GFR (CKD) >90 (>60 ml/min/1.73 sqM); Albumin 4.2 g/dL (3.5-5.0); Alkaline Phosphatase 118 U/L (38-126); Anion Gap 8 mmol/L; Blood Urea Nitrogen 16 mg/dL (7-17); Calcium 9.3 mg/dL (8.4-10.2); Carbon Dioxide 26 mmol/L (22-30); Chloride 102 mmol/L (98-107); Glucose 100 mg/dL (74-99); Non-African American GFR(CKD) 85 (>60 ml/min/1.73 sqM); Potassium 3.8 mmol/L (3.5-5.1); Sodium 136 mmol/L (137-145); Total Bilirubin 0.4 mg/dL (0.2-1.3); Total Protein 6.6 g/dL (6.3-8.2)
[2024-06-27 17:42] LABS: Eosinophils # (M) 0.18 k/uL (0-0.7); Lymphocytes # (M) 2.49 k/uL (1.0-4.8); Monocytes # (M) 0.18 k/uL (0-1.0); Neutrophils # (M) 6.05 k/uL (1.3-7.7); Neutrophils % (M) 68 %; Nucleated Red Blood Cells 0 /100 WBC (0-0); Total Cells Counted 100
[2024-06-27 17:43] LABS: Large Platelets Present; Polychromasia Present
[2024-06-27] MEDS ORDERED: LIDOCAINE-PRILOCAINE 2.5-2.5% CREAM 5 GM TUBE TOPICAL STA (17:57)
[2024-06-27] MEDS: LIDOCAINE-PRILOCAINE 2.5-2.5% CREAM 5 GM TUBE TOPICAL STA (18:26)
[2024-06-27 18:38] VITALS: BP 136/76; PULSE 86; RESP 20; TEMP 98.1
== END 2024-06-27 18:38 | disposition home or self-care (01) ==
LOC: EC 15:34 → SUPCPDRO 15:34 → EC 18:38
DX: K64.4 Residual hemorrhoidal skin tags (principal)
CPT/HCPCS: 36415; 80053; 83605; 85025; 99283; 96374; 96361; J1885

== ENCOUNTER → 2024-07-18 | Day surgery (SDC) | payer OTHER ==
[~2024-07-18] MED LIST: PROPOFOL 10 MG/ML 20 ML VIAL IV ONE
[2024-07-18 08:54] VITALS: TEMP 98.3
[2024-07-18 09:05] LABS: Glucose,Whole Blood 126 mg/dL (70-110)
[2024-07-18] MEDS: LACTATED RINGERS 1,000 ML IV SCH (09:05)
[2024-07-18] MEDS: IV FLUID CONTINUATION 1,000 ML IV ONE (09:06)
--- NOTE | 2024-07-18 09:28 | P.OP ---
Date of Procedure: 07/18/24 Preoperative Diagnosis: GI bleed Postoperative Diagnosis: Internal/external hemorrhoids Procedure(s) Performed: Colonoscopy Anesthesia: MAC Surgeon: Bj Lange Pathology: none sent Condition: stable Disposition: PACU Description of Procedure: The patient was placed on the endoscopy table in the lateral position. She received IV sedation. Digital rectal exam was performed. This revealed internal/external hemorrhoids. Flexible colonoscope was then placed patient anus passed throughout the entire colon. The ileocecal valve was visualized. The cecum, ascending and transverse colon appeared normal. The descending and sigmoid colon appeared normal. Scope was brought back to the rectum this was normal. Scope withdrawn through the anus and internal/external hemorrhoids were noted.
[2024-07-18 09:33] VITALS: RESP 16
[2024-07-18 09:51] VITALS: BP 127/78; PULSE 74
== END ==
LOC: ORWHC2ENDO 08:13
PROVIDERS: ATTEND Surgery
DX: K64.4 Residual hemorrhoidal skin tags (principal); K64.8 Other hemorrhoids; I10 Essential (primary) hypertension; E11.9 Type 2 diabetes mellitus without complications; E07.9 Disorder of thyroid, unspecified; M19.90 Unspecified osteoarthritis, unspecified site; M79.7 Fibromyalgia; G43.909 Migraine, unspecified, not intractable, without status migrainosus; K21.9 Gastro-esophageal reflux disease without esophagitis; Z79.84 Long term (current) use of oral hypoglycemic drugs; Z79.899 Other long term (current) drug therapy; Z88.1 Allergy status to other antibiotic agents; Z88.8 Allergy status to other drugs, medicaments and biological substances; Z88.2 Allergy status to sulfonamides; Z91.048 Other nonmedicinal substance allergy status
CPT/HCPCS: 45378; J2704

== ENCOUNTER 2024-07-19 06:08 | Day surgery (SDC) | payer OTHER ==
[~2024-07-19 06:08] MED LIST changes: +LIDOCAINE 1% (10MG/ML) FOR IV START INTRADERMA PRN; +MIDAZOLAM 2 MG/2 ML VIAL IV PRN; -PROPOFOL 10 MG/ML 20 ML VIAL IV ONE; +Pre Op ABX Message 1 EACH MISC MISCELLANE ONE; +fentaNYL (PF) 50 MCG/ML 2 ML AMP IVP PRN
[2024-07-19] MEDS: IV FLUID CONTINUATION 1,000 ML IV ONE (06:48)
[2024-07-19] MEDS: FAMOTIDINE 20 MG/2 ML VIAL IV STA (07:08)
[2024-07-19] MEDS: LACTATED RINGERS 1,000 ML IV SCH (07:09)
[2024-07-19] MEDS: ONDANSETRON 4 MG/2 ML VIAL IVP ONE (07:09)
[2024-07-19] MEDS: ACETAMINOPHEN TAB 500 MG TAB PO PRN (07:09)
[2024-07-19] MEDS: HEPARIN SODIUM,PORCINE 5,000 UNIT/ML 1 ML VIAL SQ PRN (07:09)
[2024-07-19] MEDS: DEXAMETHASONE SOD PHOSPHATE 4 MG/ML 1 ML VIAL IV ONE (07:09)
[2024-07-19 07:20] VITALS: RESP 16
[2024-07-19 07:26] LABS: Glucose,Whole Blood 123 mg/dL (70-110)
[2024-07-19] MEDS ORDERED: fentaNYL (PF) 50 MCG/ML 2 ML AMP ONE (07:38)
[2024-07-19] MEDS ORDERED: PROPOFOL 10 MG/ML 20 ML VIAL IV ONE (07:38)
[2024-07-19] MEDS ORDERED: LIDOCAINE 1% INJ 10MG/ML (20 ML MDV) ONE (07:38)
[2024-07-19] MEDS ORDERED: KETOROLAC 30 MG/ML 1 ML VIAL ONE (07:38)
[2024-07-19] MEDS ORDERED: MIDAZOLAM 2 MG/2 ML VIAL ONE (07:38)
[2024-07-19] MEDS ORDERED: SUCCINYLCHOLINE CHLORIDE 200 MG/10 ML VIAL IV ONE (07:38)
[2024-07-19] MEDS: LIDOCAINE 1%-EPI 1:100,000 20 ML VIAL SQ ONE (08:01)
--- NOTE | 2024-07-19 08:30 | P.OP ---
Date of Procedure: 07/19/24 Preoperative Diagnosis: Internal/external hemorrhoids Postoperative Diagnosis: Internal/external hemorrhoids Procedure(s) Performed: Internal/external hemorrhoidectomy Anesthesia: MICAH Surgeon: Bj Lange Estimated Blood Loss (ml): 5 Pathology: other (Hemorrhoids) Condition: stable Disposition: PACU Description of Procedure: The patient is placed on the operative table in the prone jackknife position after receiving general anesthesia. Her anus was prepped and draped you sterile fashion. Patient had large hemorrhoids. The anal retractor placed anus. In the left hemorrhoidal column was grasped with a pair of Allis clamps and then excised using harmonic scissors. Next the right anterior and right posterior hemorrhoidal columns were dissected identical fashion. There was no bleeding seen. The anus was injected 1% local Xylocaine. The anus was then packed with Gelfoam. Sterile dressing was applied. Patient tolerated well. She was sent home in stable condition.
[2024-07-19 08:34] VITALS: TEMP 97.1
[2024-07-19] MEDS: HYDROmorphone 0.5 MG/0.5 ML SYRINGE IVP PRN (08:36)
[2024-07-19 09:52] VITALS: BP 116/71; PULSE 97
== END 2024-07-19 10:12 | disposition home or self-care (01) ==
LOC: OR 06:08
PROVIDERS: ATTEND Surgery
DX: K64.8 Other hemorrhoids (principal); K64.4 Residual hemorrhoidal skin tags; E03.9 Hypothyroidism, unspecified; Z87.891 Personal history of nicotine dependence; Z79.84 Long term (current) use of oral hypoglycemic drugs; Z79.890 Hormone replacement therapy
CPT/HCPCS: 46260; 88304; J2250; J0330; J1644; J1100; J2405; J2003; J3010; J1885; J3490; J2704; J1171

== ENCOUNTER → 2024-07-24 | Outpatient (CLI) | payer OTHER ==
--- NOTE | 2024-07-24 11:42 | MM ---
Reason for Exam: Clinical finding. Last screening mammogram was performed 10 month(s) ago. Indicated Problems: Pain of the left side (Focal) for 6 Month(s) : dull achy. Patient History: Menarche at age 17. First Full-Term at age 23. Postmenopausal. Patient has history of breast feeding. Hormonal Contraceptives for 7 years from age 17 until age 24. 07/11/2018, Benign Cyst Aspiration on the left side. 07/22/2014, Benign Core Biopsy on the left side. Paternal cousin had breast cancer at or over age 50. Paternal aunt had breast cancer, age 70. Niece had breast cancer under age 50. Sister had breast cancer, age 61. Sister had breast cancer at or over age 50. Risk Values: Chantal 5 year model risk: 6.7%. NCI Lifetime model risk: 26.9%. Prior Study Comparison: 01/22/2015 Bilateral Diagnostic Mammogram, [facility]. 07/22/2021 Bilateral Diagnostic Mammogram, [facility]. 09/16/2022 Bilateral MG 3D screening mammo w/cad, [facility]. 09/27/2023 Bilateral MG 3D screening mammo w/cad, [facility]. Tissue Density: There are scattered areas of fibroglandular density. Findings: Analyzed By CAD. Benign appearing chronic lymph nodes left axilla. Surgical clips in the left breast. There is no dominant mass or architectural distortion. No suspicious grouped calcifications. Overall Assessment: Benign, BI-RAD 2 Management: Screening Mammogram of both breasts in 1 year. No mammographic abnormality. Recommend management on clinical basis. Results were given to the patient verbally at the time of exam. Patient should continue monthly self-breast exams. A clinical breast exam by your physician is recommended on an annual basis. This exam should not preclude additional follow-up of suspicious palpable abnormalities. Note on Chantal scores and lifetime risk: 1. A Chantal score greater than 3% is considered moderate risk. If this is the case, consider specialist referral to assess eligibility for a risk reducing agent. 2. If overall lifetime risk for the development of breast cancer is 20% or higher, the patient may qualify for future screening with alternating mammogram and breast MRI. [facility], , 07/24/2024 11:38 AM. Electronically signed and approved by: Joshua Ortiz M.D. Radiologis
== END | disposition home or self-care (01) ==
LOC: RADMAMWWP 10:34
PROVIDERS: ATTEND Family Medicine
DX: N64.4 Mastodynia (principal); R92.323 Mammographic fibroglandular density, bilateral breasts; Z78.0 Asymptomatic menopausal state; Z80.3 Family history of malignant neoplasm of breast; Z92.0 Personal history of contraception
CPT/HCPCS: 77066; G0279; 77062

== ENCOUNTER → 2024-07-24 | Outpatient (CLI) | payer OTHER ==
--- NOTE | 2024-07-24 14:52 | BD ---
EXAMINATION TYPE: Axial Bone Density DATE OF EXAM: 07/24/2024 CLINICAL HISTORY: 63 years old Female. ICD-10 CODE: Z78.0 POST MENOPAUSAL , Additional History: Height: 65.5 in Weight: 250 lbs FRAX RISK QUESTIONS: History of Fracture in Adulthood: rt hand age 19 Secondary Osteoporosis: 3. Menopause before 45: age 41 RISK FACTORS HISTORY OF: Surgery to Spine: age 62 l-spine surgery MEDICATIONS: Thyroid Medications: yes Which medication: Levothyroxine How Lon+ years EXAM MEASUREMENTS: Bone mineral densitometry was performed using the ModusP System. Bone mineral density about the R hip (g/cm2): 0.898 Bone mineral density about the L hip (g/cm2): 0.920 T Score values are as follows: -----R Neck: -0.8 -----L Neck: -1.4 -----R Total: -0.9 -----L Total: -0.7 Z Score values are as follows: -----R Neck: -0.2 -----L Neck: -0.8 -----R Total: -0.6 -----L Total: -0.5 Bone mineral density baseline Bone mineral density about the L Wrist (g/cm2): 0.690 T Score values are as follows: -----Dist. R+U: -0.1 -----Prox. R+U: -0.1 -----Radius total: 0.3 Z Score values are as follows: -----Dist. R+U: 1.0 -----Prox. R+U: 1.0 -----Radius total: 1.4 Bone mineral density baseline FRAX%s: The graph provided illustrates a 12.4% chance for a major osteoporotic fx and a 1.0% chance f or the hips probability for fx in 10 years time. IMPRESSION: Osteopenia (T Score between -2.5 and -1). There is slightly increased risk of fracture and the patient may be considered for treatment. Re-Screen 2-5 years. NOTE: T-SCORE=SD OF THE YOUNG ADULT MEAN. [facility], , 07/24/2024 2:49 PM
== END | disposition home or self-care (01) ==
LOC: RADBDWWP 10:32
PROVIDERS: ATTEND Family Medicine
DX: M85.89 Other specified disorders of bone density and structure, multiple sites (principal); Z78.0 Asymptomatic menopausal state
CPT/HCPCS: 77080